=== PATIENT | female | born 1965 | race Caucasian/White ===

== ENCOUNTER → 2025-02-20 | Outpatient (CLI) | payer MEDICAID, SELFPAY ==
--- NOTE | 2025-02-20 14:20 | XR_ITS ---
Examination: Bone densitometry Date and time of exam:February 20, 2025 1443 hours INDICATIONS: Menopause age 45 vitamin D 3 months, diabetic, postmenopausal ankle fracture Technique: Lumbar spine and hip total bone mineralization values of an calculated. Peak reference and age match control results have been displayed. Findings: Lumbar spine total bone mineralization is0.885 gm/cm2. This is 1.5 standard deviations below peak reference. This is 0.0 standard deviations at age-matched controls. Hip total bone mineralization is 0.984 gm/cm2 This is 0.2 standard deviations above peak reference. This is 1.1 standard deviations above age-matched controls Impression: There is osteopenia based on lumbar spine measurements. There is osteopenia based on hip measurements Lumbar mineralization is decreased 8.2% compared with April 09, 2016 Hip mineralization is increased 5.1% compared with April 09, 2016
== END | disposition home or self-care (01) ==
LOC: CDIM 14:19
PROVIDERS: Referring Provider Nurse Practitioner Family; Visit Provider Nurse Practitioner Family
DX: M85.89 Other specified disorders of bone density and structure, multiple sites (principal)
CPT/HCPCS: 77080